=== PATIENT | male | born 1985 | race Caucasian/White ===

== ENCOUNTER 2021-11-15 17:18 | Emergency (ER) | payer SELFPAY ==
--- NOTE | 2021-11-15 17:25 | XRR_ITS ---
PROCEDURE INFORMATION: Exam: XR Right Ankle Exam date and time: 11/15/2021 6:02 PM Age: 36 years old Clinical indication: Injury or trauma; Fall; Blunt trauma; Ankle; Right; Additional info: Right ankle injury TECHNIQUE: Imaging protocol: Radiologic exam of the Right ankle. Views: 3 or more views. COMPARISON: No relevant prior studies available. FINDINGS: Bones/joints: 6 mm avulsed fragment noted inferior to the tip of the lateral malleolus. Soft tissues: Extensive soft tissue swelling around the avulsed fragment. XR/XR ankle RT min 3V* [id number] IMPRESSION: Avulsion fracture of the tip of the lateral malleolus.
[2021-11-15 17:54] VITALS: PULSE 98; RESP 18; TEMP 37.7; O2SAT 98; BMI 32.5
--- NOTE | 2021-11-15 18:04 | ED_ITS ---
HPI - Extremity Problem General: Chief complaint: Extremity Injury, Lower Stated complaint: Right ankle injury Time Seen by Provider: 11/15/21 17:59 History of Present Illness: Patient is a 36-year-old male comes to the ED with right ankle injury. Patient says injury occurred just prior to arrival. He was weed eating a ditch area it was standing on a slope. He lost his balance while standing on a slope and rolled his right ankle. Patient says he heard a pop when the injury occurred. He rates his pain currently a 9 out of 10 and he cannot weight-bear or move ankle. He has not had any pain medications before coming to the ED. Associated symptoms: Deny chest pain, fever(s) or rash Review of Systems Const: Denies: fever(s), chills or fatigue Eyes: Denies: change in vision or eye discomfort ENMT: Denies: throat pain, odynophagia, nasal discharge or nasal congestion Card: Denies: chest pain, palpitations, edema, swelling of feet/ankles, dyspnea on exertion or orthopnea Resp: Denies: dyspnea, productive cough or non-productive cough GI: Denies: abdominal pain, nausea, vomiting, diarrhea, constipation or hematochezia : Denies: flank pain, difficulty urinating, dysuria or hematuria Musc: Reports: extremity pain (Right ankle); Denies: neck pain, back pain or extremity swelling Skin/Breast: Denies: rash or new lesions Neuro: Denies: headache(s), numbness in extremities or weakness in extremities [facility] ED PFSH: Medical History No pertinent family history Psychiatric care Physical Exam Const: COMMON NORMALS: patient oriented x3 and alert GENERAL APPEARANCE: cooperative HENMT: COMMON NORMALS: normocephalic HEAD & SCALP: normocephalic MOUTH: Normal oral and palatal mucosa present THROAT: posterior oropharynx normal and uvula midline Neck/C-Spine: COMMON NORMALS: supple GENERAL: Yes normal visual inspection Resp: COMMON NORMALS: normal respiratory effort, No retractions, No use of accessory muscles and clear to auscultation bilaterally AUSCULTATION: clear to auscultation bilaterally Cardio: COMMON NORMALS: regular rate, regular rhythm, S1 normal heart sound present, S2 normal heart sound present, No gallops present (Cardio), No clicks present (Cardio), No murmurs present (Cardio) and Peripheral pulses 2+ throughout RATE: regular rate RHYTHM: regular rhythm HEART SOUNDS: S1 normal heart sound present and S2 normal heart sound present PERIPHERAL PULSES: Peripheral pulses 2+ throughout GI: COMMON NORMALS: Normal to inspection, nondistended, normoactive bowel sounds present, Soft to palpation, non-tender and no masses PALPATION: Yes Soft to palpation : COMMON NORMALS: Yes no CVA tenderness BLADDER/KIDNEY EXAM: Yes no CVA tenderness Back/Pelvis: COMMON NORMALS: no CVA tenderness Extremity: RIGHT LOWER EXTREMITY: Yes foot & digits Right ankle: Yes inspection (No visible deformity, significant swelling around lateral malleolus), Yes palpation (Tenderness over lateral malleolus), Yes ROM (Limited range of motion due to pain) and Yes neurovascular exam (Neurovascular intact) Neuro: COMMON NORMALS: patient oriented x3 SENSORIUM/ORIENTATION: Yes alert GAIT: Yes Normal gait present Skin: GENERAL SKIN EXAM: dry skin Course Vital Signs: Vital signs: Vital Signs Temperature 99.9 F H 11/15/21 18:17 Pulse Rate 98 11/15/21 18:17 Respiratory Rate 18 11/15/21 18:17 Pulse Oximetry 98 11/15/21 18:17 MDM - Extremity (Nontraumatic) Medical Decision Making Patient is a 36-year-old male comes to the ED with right ankle injury. Patient was standing on a hill and rolled his right ankle causing a pop. He now has pain in right ankle with significant swelling to the lateral malleolus. He cannot weight-bear due to pain and is limited range of motion of the ankle due to pain. Tenderness over lateral malleolus. Neurovascular tact. X-ray shows an avulsion fracture of the tip of the lateral malleolus. Clinical and x-ray findings suggestive of a moderate to severe sprain of right ankle. He was put into a posterior leg splint and discharged home with crutches. I placed order with case management for patient be referred to Ortho for follow-up and further management of ankle sprain. Return to ED precautions given. Patient understood and agreed with plan. Lab Data Radiology Impressions Ankle X-Ray 11/15/21 17:25 IMPRESSION: Avulsion fracture of the tip of the lateral malleolus. Discharge Plan Discharge Patient Disposition: Home Clinical Impression: Ankle sprain and strain Condition: Stable Prescriptions: New ibuprofen 800 mg tablet 800 mg PO Q8H PRN (Reason: pain) Qty: 30 0RF Discharge Orders: Discharge ED (Routine); Ordered 11/15/21 Ordered By: Monroe John Discharge Diet: Regular Discharge Activity: Limit activity as instructed and Use walker/crutches as instructed Patient Instructions: Ankle Sprain (ED) Activity Restrictions/Additional Instructions: Follow-up with medical provider as directed. Case management should be contacting you next several days to set up appoint with Ortho for follow-up. Keep splint on and dry in limit any weightbearing and use crutches to help with ambulation. Rest, ice and elevate right foot. Take medications as prescribed. Return to the ER or your medical provider if condition worsens. Please read and understand discharge instructions. Thank you for choosing [facility] for your healthcare needs today. Please realize this is an emergency room and that we are providing you with a medical screening exam and this may not be complete and all inclusive of all the testing and or work up that you may need to determine your ailment or severity of your illness. It is very important that you follow up as instructed or that you return to the Emergency Department should you have concerns or if your condition changes or worsens in any way. Coding Level of Care Code ED Director Of Property Management for [facility] Exam Comprehensive
[2021-11-15 18:17] VITALS: PULSE 98; RESP 18; TEMP 37.7; O2SAT 98
[2021-11-15] MEDS: ketorolac 60 mg/2 mL INJ IM (18:23)
--- NOTE | 2021-11-17 11:07 | DCPLANNER ---
Addendum entered by Yovana Segovia 11/23/21 15:10: manager filter received the following message from ortho regarding follow up appointment: Left vm/and mailed letter to have pt call back in to contact us for an appt with Dr. Maldonado. Original Note: manager filter had message to schedule a follow up appointment for patient with ortho. manager filter sent patients information to the front office staff at ortho. Patients information will be printed and reviewed. Clinic will call patient with appointment information.
== END 2021-11-15 19:28 | disposition home or self-care (01) ==
PROVIDERS: Emergency Provider Physician Assistant
DX: S93.401A Sprain of unspecified ligament of right ankle, initial encounter (principal); S96.911A Strain of unspecified muscle and tendon at ankle and foot level, right foot, initial encounter; S82.61XA Displaced fracture of lateral malleolus of right fibula, initial encounter for closed fracture; X50.1XXA Overexertion from prolonged static or awkward postures, initial encounter
CPT/HCPCS: 29515; 73610; 96372; 99284; E0114; J1885